=== PATIENT | female | born 1945 | race Caucasian/White ===

== ENCOUNTER 2019-08-16 12:02 | Inpatient (IN) | payer OTHER ==
[~2019-08-16] VITALS: Ht 167.6 cm; Wt 121.1 kg
--- NOTE | ~2019-08-16 | HC ---
[facility] [place] [address] CONSULTATION Name: SARAH VALLE Tyrone Room #: 211-P [facility] IN M.R.#: [id number] Admission: 08/16/19 Attend Phys: Dwayne Milton MD Discharge: Date of : 47 Report #: [id number] THIS REPORT FOR: cc: Chante Alavrado MD,Aureliano Galindo MD, MD FAC ~ CC: Dr. Sage Alvarado MD REASON FOR CONSULTATION: Chest pain. HISTORY OF PRESENT ILLNESS: The patient is a 74-year-old woman with longstanding hypertension and known coronary artery disease with intervention at [facility] in 2013. Her history includes diabetes, chronic diastolic heart failure, dyslipidemia and sleep apnea. For the past week, she has had intermittent chest pressure. This pain can occur both with activity or rest. The pain has been relieved with sublingual nitroglycerin. She called Dr. Grande's office yesterday and arrangements were made for coronary angiography this upcoming Sunday. She had recurrent episodes of pain and presented to the Emergency Department and was admitted for further evaluation. She denies heart failure symptoms including orthopnea, paroxysmal nocturnal dyspnea, or lower extremity edema. No history of palpitations, near syncope or syncope. ALLERGIES: Include CIPRO, CODEINE, KEFLEX, PENICILLIN and SEPTRA. MEDICATIONS: Include Arimidex 1 mg daily, Ventolin, Humulin, irbesartan 300 mg daily, tramadol 2 times a day, Symbicort, Plavix 75 mg daily, Colace, Lipitor 20 mg daily, spironolactone 50 mg twice daily, Coreg 6.25 mg twice daily, Lasix 40 mg twice daily and Tylenol. PAST MEDICAL HISTORY: Medical records have been reviewed and include a history of coronary artery disease, hypertension, chronic diastolic heart failure, known left bundle branch block, carpal tunnel release, right and left knee replacements, tonsillectomy. SOCIAL HISTORY: She is . Nonsmoker, nondrinker. FAMILY HISTORY: Notable for premature coronary artery disease. REVIEW OF SYSTEMS: All systems negative except as that noted above. PHYSICAL EXAMINATION: GENERAL: A pleasant woman who is in no distress. VITAL SIGNS: Blood pressure is 100/50, heart rate is 66 and regular. She is afebrile, 5 feet 6 inches tall, [address] [address] CONSULTATION Name: SARAH VALLE Room #: 211-P [facility] IN ..#: [id number] Admission: 08/16/19 Attend Phys: Dwayne Milton MD Discharge: Date of : 47 Report #: [id number] HEENT: There are neither xanthelasma, subcutaneous xanthomata, oral mucosal or digital cyanosis or kyphoscoliosis present. CHEST: Clear to auscultation and percussion. CARDIAC: Regular rate and rhythm with normal S1, S2. No murmurs or rubs. ABDOMEN: Soft and nontender. EXTREMITIES: Without cyanosis, clubbing or edema. Radial pulses are 2+. NEUROLOGIC: She is alert with a nonfocal exam. LABORATORY DATA: Sodium is 137, potassium 3.8, creatinine 1.1. Troponin 0.15. ProBNP of 243. White count 8.9, hemoglobin 13, hematocrit 41, platelet count 265. Chest x-ray: Cardiomegaly, mild interstitial prominence. IMPRESSION: 1. Chest pain consistent with unstable angina. 2. Coronary artery disease with remote stenting. 3. Diabetes, insulin requiring. 4. Dyslipidemia. 5. Hypertension. 6. Chronic diastolic heart failure, ejection fraction 55% by recent echocardiography with moderate aortic valve calcification without stenosis. 7. Left bundle branch block. 8. Sleep apnea, untreated, intolerant to CPAP. 9. Obesity. RECOMMENDATIONS: 1. Coronary angiography. 2. Continued use of beta blockade, statin and ARB therapy. 3. The angiographic procedure was discussed in detail including its associated risks. After a thorough discussion of the procedure, its risks and alternatives, she is agreeable to proceeding. By: 0823 0852 Aureliano Silva MD, [facility] /nt
[~2019-08-16 12:02] MED LIST: ADVAIR 100-501 EACH INH; ALDACTONE25 MG PO; ASPIRIN325 PO; CALCIUM 600+D1 EACH PO; CELEBREX 200 M200 M1 PO; CENTRUM SILVER1 EAC2 PO; COLACE100 MG PO; COREG6.25 MG PO; EFFIENT10 MG PO; FLONASE 0.05%50 MCG NASAL; HUMULINU500; LASIX 40 MG TAB40 M2 PO; LIPITOR 20 MG T20 M1 PO; METFORMIN HCL500 MG PO; NEURONTIN 300300 M1 PO; POTASSIUM20 PO; TELMISARTAN40 MG PO; TRAMADOL 50 MG50 MG PO; ZYRTEC10 M5 PO
[2019-08-16 12:03] VITALS: BP 140/62
[2019-08-16 12:27] LABS: ABSOLUTE NEUTROPHILS 6.2 thou/uL (1.4-8.2); BASOPHILS 0.6 % (0.0-2.0); EOSINOPHILS 4.6 % (0.0-3.0); HEMOGLOBIN 14.1 gm/dL (12.0-15.0); LYMPHOCYTES 28.3 % (24.0-44.0); MCH 30.1 pg (26.0-34.0); MCHC 33.6 g/dL (28.0-37.0); MCV 89.6 fL (80.0-100.0); MONOCYTES 10.6 % (1.0-8.0); PLATELET COUNT 267 thou/uL (150-400); POLYS 55.9 % (36.0-66.0); RBC 4.69 mil/uL (4.20-5.00); RDW 14.6 % (10.5-14.5); WBC 11.1 thou/uL (4.0-11.0)
[2019-08-16 12:31] LABS: CALCIUM 10.3 mg/dL (8.5-10.1); CREATININE 1.4 mg/dL (0.6-1.0); POTASSIUM 4.3 mmol/L (3.5-5.1)
[2019-08-16 12:40] LABS: TROPONIN-I 0.1 ng/mL (<0.06)
--- NOTE | 2019-08-16 14:54 | NUR ---
REPORT CALLED TO GRACIA HERNANDEZ
[2019-08-16 15:10] VITALS: BP 118/61
[2019-08-16 15:20] VITALS: BP 89/50
[2019-08-16 16:30] VITALS: BP 109/42
[2019-08-16] MEDS ORDERED: METFORMIN HCL500 M3 PO (16:53)
[2019-08-16] MEDS ORDERED: PLAVIX 75 MG TA75 MG PO (16:54)
[2019-08-16] MEDS ORDERED: ARIMIDEX1 MG PO ×2 (16:56→17:08)
[2019-08-16] MEDS ORDERED: VENTOLIN HFA 1818 GM INH (17:09)
[2019-08-16] MEDS ORDERED: HUMULIN R500 UNIT/1 SQ (17:10)
[2019-08-16 17:11] LABS: PROTIME 10.7 Seconds (9.3-11.4)
[2019-08-16] MEDS ORDERED: FLUOXETINE HCL20 M1 PO (17:11)
[2019-08-16] MEDS ORDERED: HYDROCODON-ACE1 EAC7 PO (17:12)
[2019-08-16] MEDS ORDERED: SYMBICORT80 MCG/4.1 INH (17:13)
[2019-08-16] MEDS ORDERED: SPIRONOLACTONE50 MG PO (17:14)
[2019-08-16] MEDS ORDERED: MECLIZINE HCL25 M1 PO (17:15)
[2019-08-16] MEDS ORDERED: VALIUM2 MG PO (17:16)
[2019-08-16] MEDS ORDERED: BACLOFEN 10MG T10 MG PO (17:16)
[2019-08-16] MEDS ORDERED: ACETAMINOPHEN500 MG PO (17:18)
[2019-08-16] MEDS ORDERED: MUCINEX1200 MG PO (17:22)
--- NOTE | 2019-08-16 18:06 | NUR ---
PT CARE ASSUMED APPROX 1520. ASSESSMENT CHARTED. PT DENIES PAIN AND SOA. BP BELOW NORMAL LIMITS. DR AREVALO AWARE AND MED ADJUSTMENTS MADE. PT ASYMPTOMATIC BUT AWARE TO CALL FOR ASSISTANCE WITH AMBULATING. VITAL SIGNS OTHERWISE STABLE. HEP GTT ADDED TO POC. PT DENIES QUESTIONS AND CONCERNS REGARDING POC. TOLERATING POC. NO DISTRESS NOTED.
[2019-08-16 19:25] VITALS: BP 125/42
--- NOTE | 2019-08-17 04:27 | NUR ---
ASSUMED PT CARE AT 1900. PT IS ALERT AND ORIENTED. PT IS SITTING IN CHAIR. CONTINUOUS HEPARIN DRIP IN PLACE. NO IS SIGN OF DISTRESS NOTED. ASSESSMENT COMPLETED AND DOCUMENTED. DENIES ANY PAIN, VITAL SIGNS STABLE. SCHEDULED MEDS ADMINISTERED TO PT. TOLERATED PO INTAKE. NO ACUTE EVENTED OVERNIGHT. DENIES ANY FURTHER NEEDS AT THIS TIME.
[2019-08-17 05:06] VITALS: BP 110/51
[2019-08-17 07:12] LABS: HEMATOCRIT 41.8 % (37.0-47.0); HEMOGLOBIN 13.9 gm/dL (12.0-15.0); MCHC 33.3 g/dL (28.0-37.0); MCV 89.9 fL (80.0-100.0); RBC 4.65 mil/uL (4.20-5.00); RDW 14.8 % (10.5-14.5); WBC 8.9 thou/uL (4.0-11.0)
[2019-08-17 07:32] LABS: CALCIUM 9.9 mg/dL (8.5-10.1); CREATININE 1.1 mg/dL (0.6-1.0); MAGNESIUM 1.6 mg/dL (1.8-2.4); POTASSIUM 3.8 mmol/L (3.5-5.1)
[2019-08-17 08:55] LABS: CHOLESTEROL 87 mg/dL (<200); HDL CHOLESTEROL 34 mg/dL (>40); LDL CHOLESTEROL 32 mg/dL (<100); TC:HDL 2.6 Ratio (Not establshd); TRIGLYCERIDE 107 mg/dL (<150); VLDL 21 mg/dL (<40)
[2019-08-17 09:10] VITALS: BP 111/70
--- NOTE | 2019-08-17 11:08 | EKG ---
[facility] [address] ELECTROCARDIOGRAM REPORT Name: TORIDENNYSSARAH A Room #: 211- ADM IN M.R.#: [id number] Admission: 08/16/19 Attend Phys: Dwayne Milton MD Discharge: Date of : 47 Report #: [id number] THIS REPORT FOR: cc: Chante Alvarado MD,Chante Silva,Aureliano Hodges MD [facility] ~ THIS REPORT FOR: //name// [facility] ED Test Date: 2019-08-16 Test Time: 12:05:39 Pat Name: SARAH VALLE Department: Room: 211 Gender: F Core Baker: MARIBEL : 1945 Requested By: Ken Mijares Order Number: [id number] MD: Aureliano Silva Measurements Intervals [place] Rate: 79 P: 55 MI: 170 QRS: -6 QRSD: 164 T: 170 QT: 404 QTc: 464 Interpretive Statements Sinus rhythm Left bundle branch block Compared to ECG 08/25/2003 14:20:49 No significant changes Electronically Signed On 08-17-2019 11:06:42 CDT by Aureliano Silva [email or web address] <ELECTRONICALLY SIGNED> By: Aureliano Silva MD, [facility] 08/17/19 1106 1205 1205 Aureliano Silva MD, [facility] /EPI
--- NOTE | 2019-08-17 11:20 | EKG ---
[facility] [place] [address] ELECTROCARDIOGRAM REPORT Name: SARAH VALLE Room #: 211-P ADM IN M.R.#: [id number] Admission: 08/16/19 Attend Phys: Dwayne Milton MD Discharge: Date of : 47 Report #: [id number] THIS REPORT FOR: cc: Chante Alvarado MD,Chante Silva,Aureliano Hodges MD [facility] ~ THIS REPORT FOR: //name// [facility] Test Date: 2019-08-17 Test Time: 08:34:50 Pat Name: SARAH VALLE Department: Room: 211 P Gender: F Music Engraver: Ji RHODES : 1945 Requested By: Aureliano Silva Order Number: [id number] MD: Aureliano Silva Measurements Intervals [place] Rate: 85 P: 56 [place]: 157 QRS: 11 QRSD: 162 T: 179 QT: 393 QTc: 468 Interpretive Statements Sinus rhythm Left bundle branch block Baseline wander in lead(s) V1 Compared to ECG 08/25/2003 14:20:49 No significant changes Electronically Signed On 08-17-2019 11:19:01 CDT by Aureliano Silva [email or web address] <ELECTRONICALLY SIGNED> By: Aureliano Silva MD, [facility] 08/17/19 1119 0834 0834 Aureliano Silva MD, FAC /EPI
[2019-08-17 12:56] VITALS: BP 110/43
[2019-08-17 17:50] VITALS: BP 121/45
--- NOTE | 2019-08-17 18:45 | NUR ---
ASSUMED CARE OF PATIENT AT 0700. ASSESSMENTS CHARTED. HEPARIN DRIP AND RECORDED ON TITRATION FORM. DENIES ANY CHEST PAIN. HR 70'S. PATIENT MONITORS BLOOD SUGAR WITH MANINDER IN LEFT ARM AND INSULIN PUMP. LOW MAGNESIUM, SUPPLEMENTED AND RECHECKED WITHOUT NORMAL LIMITS. ANGIOGRAM AND CARDIAC CATH SCHEDULED FOR MON AM. CONSENTS SIGNED. PATIENT SAT IN CHAIR FOR MAJORITY OF THE DAY. CONTINUE WITH POC.
[2019-08-17 19:43] VITALS: BP 108/61
[2019-08-18] VITALS (12 sets, daily range): BP systolic 96–142; BP diastolic 44–79
--- NOTE | 2019-08-18 03:24 | NUR ---
ASSESSMENTS CHARTED, MEDS CHARTED GIVEN. PATIENT RESTING IN RECLINER DURING SHIFT. ON HEPARIN DRIP UNTIL 0500 AM WHEN IT IS TO BE STOPPED. SINUS RHYTHM WITH BBB ON TELEMETRY. LUNGS CLEAR ON ROOM AIR. NPO SINCE MIDNIGHT FOR ANGIOGRAM AND LEFT HEART CATH IN THE AM. PATIENT UP WITH STANDBY ASSIST AND HER CANE. PATIENT HAS A GLUCOSE METER AND INSULIN PUMP SO IS TESTING AND SELF MEDICATED. FALL PRECAUTIONS IN PLACE DURING SHIFT. DENIED PAIN.
[2019-08-18 05:52] LABS: HEMATOCRIT 40.4 % (37.0-47.0); HEMOGLOBIN 13.6 gm/dL (12.0-15.0); MCH 29.9 pg (26.0-34.0); MCHC 33.5 g/dL (28.0-37.0); MCV 89.3 fL (80.0-100.0); RBC 4.53 mil/uL (4.20-5.00); RDW 14.6 % (10.5-14.5); WBC 8.9 thou/uL (4.0-11.0)
[2019-08-18 06:09] LABS: CALCIUM 8.9 mg/dL (8.5-10.1); MAGNESIUM 1.9 mg/dL (1.8-2.4); POTASSIUM 3.9 mmol/L (3.5-5.1)
--- NOTE | 2019-08-18 15:23 | EKG ---
[facility] [place] [address] ELECTROCARDIOGRAM REPORT Name: SARAH VALLE Room #: 211- ADM IN M.R.#: [id number] Admission: 08/16/19 Attend Phys: Dwayne Milton MD Discharge: Date of : 47 Report #: [id number] THIS REPORT FOR: cc: Chante Alvarado MD,Chante Honeycutt,Steve Goodman MD ~ THIS REPORT FOR: //name// [facility] Test Date: 2019-08-18 Test Time: 14:58:16 Pat Name: SARAH VALLE Department: Room: 211 P Gender: F Film Loader: Ji RHODES : 1945 Requested By: Aureliano Silva Order Number: [id number] MD: Steve Honeycutt Measurements Intervals [place] Rate: 71 P: 54 [place]: 172 QRS: 5 QRSD: 164 T: 200 QT: 426 QTc: 463 Interpretive Statements Sinus rhythm Left bundle branch block Compared to ECG 08/17/2019 08:34:50 No significant changes Electronically Signed On 08-18-2019 15:21:52 CDT by Steve Honeycutt [email or web address] <ELECTRONICALLY SIGNED> By: Steve Honeycutt MD 08/18/19 1521 1458 1458 Steve Honeycutt MD /EPI
--- NOTE | 2019-08-18 16:39 | NUR ---
PT CARE ASSUMED APPROX 0700. ASSESSMENTS CHARTED. PT DENIES PAIN AND SOA. VSS. ORDERED BEDREST AT THIS TIME POST CATH. RIGHT GROIN POST CATH SITE C/D/I AND NEGATIVE FOR HEMATOMA. POST CATH VSS. PT TOLERATING POC AND DENIES QUESITONS OR CONCERNS REGARDING POC. NO DISTRESS NOTED.
--- NOTE | 2019-08-18 16:54 | CATHLAB ---
[facility] [place] [address] INVASIVE PROCEDURE REPORT Name: SARAH VALLE Room #: 211-P ADM IN M.R.#: [id number] Admission: 08/16/19 Attend Phys: Dwayne Milton MD Discharge: Date of : 46 Report #: [id number] THIS REPORT FOR: cc: Chante Alvarado MD, Paula V. MD Lundgren, Craig H. MD [facility] ~ APPROVED REPORT Study performed: 08/18/2019 11:49:21 Patient Details Patient Status: In-Patient Room #: The patient is a 74 year-old female Event Personnel Aureliano Silva Wreath And Garland Maker, Yash Platt RTR Desire Kay Ja'net RTR Monitor, Senait Kyle RN RN, Tian Miles ARRT, RDCS Truck Greaser Procedures Performed Art Access - R femoral artery* Left Heart Cath w/or w/o Coronaries [id number] [facility] w/wo Plasty Single CIRC [address] w/wo Plasty Single LAD 799381 14042 Initial Mod Sed Same Phys/QHP Gr5y 393446 99144 Mod Sed Same Phys/QHP Ea 035878 Indication Chest pain Procedure Narrative The patient was brought electively to the Cardiac Catheterization Laboratory and was prepped and draped in a sterile manner. The Right Groin^ was infiltrated with 1% Lidocaine subcutaneous anesthesia. A PINNACLE 6FR Sheath #[id number] sheath was inserted into the RFA^. Coronary angiography was performed using coronary diagnostic catheters. The right coronary system was accessed and visualized with a JR4 catheter. The left coronary system was accessed and visualized with a JL4 catheter. The left ventricle was accessed and visualized with a PIGTAIL catheter. Closure device was deployed with a Fr 6FR MYNXGRIP. The patient tolerated the procedure well and there were no complications associated with the procedure. There was no hematoma. Intraoperative Conscious Sedation Sedation start time: 11:48 Case end Time: [address] [address] INVASIVE PROCEDURE REPORT Name: SARAH VALLE Room #: 211-P [facility]#: [id number] Admission: 08/16/19 Attend Phys: Dwayne Milton, Discharge: Date of : 47 Report #: [id number] 13:25 Fentanyl 200 mcg Versed 2 mg Fluoro Time: 19.80 minutes Dose: DAP 35946.00 cGycm2 4658 mGy Contrast Type and Amount: Visipaque 325 ml Coronary Angiography The patient's coronary anatomy is right dominant. Diagnostic Cath Left Main Short, dual left main with separate ostia for the circumflex and left anterior descending LAD Severe ostial LAD stenosis of 85%. Mild calcific plaquing within a previously placed proximal to mid LAD stent Mild-moderate mid vessel plaquing of 30-40% Diagonal 1 Relatively small to moderate-sized bifurcating diagonal branch. Superior and more lateral limb of this bifurcation exhibited a 75% stenosis Circumflex Critical mid circumflex stenosis of 99%. This stenosis occurred prior to 3 mid to distally arising marginal branches OM1 85 to 90% ostial OM1. Moderate diffuse, long 50-60% proximal stenosis. The caliber of this vessel was too small to have been intervened upon and stented. OM2 Angiographically normal OM3 Small angiographically normal Right Coronary Small to moderate size dominant right coronary with 40-50% mid vessel plaquing R PDA Small posterior descending, angiographically normal Left Ventriculography The left ventricle is normal in size with normal contractility. The left ventricular ejection fraction is estimated to be 60-65%. Left ventricular wall motion abnormalities are not present. There is no mitral insufficiency. Hemodynamics The aortic pressure is 138/69 mmHg with a mean of 95 mmHg. The left ventricular pressure is 142/20 mmHg with a mean of mmHg. The left ventricular end diastolic pressure is 27 mmHg. PCI Technique Lesion Anticoagulation was achieved with Heparin, Integrilin. Patient was preloaded with Plavix. Percutaneous coronary intervention was performed on the proximal left anterior descending artery segment. [facility] [address] [place] [address] INVASIVE PROCEDURE REPORT Name: SARAH VALLE Room #: 211-P [facility] IN ..#: [id number] Admission: 08/16/19 Attend Phys: Dwayne Milton, Discharge: Date of : 47 Report #: [id number] The lesion stenosis prior to intervention was 85% with NEGRA 3 flow. A LAUNCHER 6FR JL4 #[id number] Guide Catheter was used to engage the left main/LAD ostium. A Luge Wire .014 x 182CM #[id number] Interventional Guidewire was used to cross the lesion. BALLOON DILATION A Balloon catheter Euphora RX 2.5 x 12 #[id number] was inserted and inflated up to 14.00atm for 32seconds. Repeat angiography revealed the following post-dilatation results: Moderate residual stenosis. STENT DEPLOYMENT A drug-eluting stent RESOLUTE FIDEL RX 2.75 X 26 #[id number] was inserted and inflated up to 14.00atm for 30seconds. POST STENT DEPLOYMENT BALLOON DILATION A Balloon catheter TREK NC RX 2.75 X 12 #[id number] was inserted and inflated up to 18.00atm for 26seconds. Repeat angiography revealed the following post-stent deployment results: 0% residual stenosis with maintenance of NEGRA-3 flow. Additional Inflation: 22.00atm for 33seconds. Final angiography reveals 0 % stenosis with NEGRA 3 flow. PCI Technique Lesion 2 Percutaneous Coronary Intervention was performed on the mid circumflex artery segment. Percutaneous coronary intervention was performed on the mid circumflex artery segment. The lesion stenosis prior to intervention was 99% with NEGRA 3 flow. A VISTA 6FR XB LAD 3.5 #[id number] Guide Catheter was used to engage the left main/circumflex ostium. A Luge Wire .014 x 182CM #[id number] Interventional Guidewire was used to cross the lesion. Balloon Dilation A Balloon catheter Euphora RX 2.5 x 12 #[id number] was inserted and inflated up to 12atm for 36seconds. Additional Inflation: 12atm for 45seconds. A JL4 guide was initially used to stent the LAD. This offered no support in delivering either a balloon or stent to the mid circumflex. This was changed out for a XB guide and new luge wire. Stent Deployment A stent RESOLUTE FIDEL RX 2.75 X15 #[id number] was inserted and inflated up to 14atm for 32seconds. Post Stent Deployment Balloon Dilation [address] [place] [address] INVASIVE PROCEDURE REPORT Name: SARAH VALLE Room #: 211-P ADM IN M.R.#: [id number] Admission: 08/16/19 Attend Phys: Dwayne Milton, Discharge: Date of : 47 Report #: [id number] A Balloon catheter TREK NC RX 2.75 X 12 #[id number] was inserted and inflated up to 18atm for 30seconds. Conclusion 1. Normal global and regional left ventricular systolic function. Ejection fraction 65% 2. Cloacal left main with separate ostia for the LAD and circumflex. 3. Severe ostial LAD stenosis successfully stented with a 2.75 x 26 mm Resolute stent 4. Critical mid circumflex stenosis successfully stented with a 2.75 x 15 mm Resolute stent 5. Complex intervention with multiple wire and catheter exchanges 6. Moderate size dominant right coronary with moderate mid vessel plaquing Recommendations Cardiac Rehabilitation Referral [facility] <ELECTRONICALLY SIGNED> By: Aureliano Silva MD, FACC 08/18/191651 51 51 Aureliano Silva MD, FACC /INF
[2019-08-19 05:03] VITALS: BP 127/52
--- NOTE | 2019-08-19 05:03 | NUR ---
ASSESSMENTS CHARTED, MEDS GIVEN CHARTED. PATIENT RESTING IN CHAIR DURING SHIFT. 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 WAS OFF BEDREST PRIOR TO HUC. RIGHT GROIN ACCESS SITE HAS SLIGHT OOZING PERIMETERS MARKED. PATIENT IS SINUS RHYTHM WITH 1 DEGREE AND BBB ON TELEMETRY, ON ROOM AIR. FALL PRECAUTIONS IN PLACE DURING SHIFT, PLAN OF CARE IS FOR PATIENT TO ATTEND CARDIAC REHAB. DENIED PAIN
[2019-08-19 05:32] LABS: HEMATOCRIT 38.4 % (37.0-47.0); HEMOGLOBIN 13.1 gm/dL (12.0-15.0); MCH 30.9 pg (26.0-34.0); MCHC 34.1 g/dL (28.0-37.0); MCV 90.7 fL (80.0-100.0); RBC 4.23 mil/uL (4.20-5.00); RDW 14.3 % (10.5-14.5); WBC 10.6 thou/uL (4.0-11.0)
[2019-08-19 05:40] LABS: ALBUMIN 3.5 g/dL (3.4-5.0); CALCIUM 8.9 mg/dL (8.5-10.1); CREATININE 0.9 mg/dL (0.6-1.0); POTASSIUM 4.3 mmol/L (3.5-5.1); TOTAL BILIRUBIN 0.4 mg/dL (<0.1-1.0); TOTAL PROTEIN 6.5 g/dL (6.4-8.2); TROPONIN-I 0.3 ng/mL (<0.06)
[2019-08-19 07:20] VITALS: BP 124/46
--- NOTE | 2019-08-19 08:40 | EKG ---
[facility] [place] [address] ELECTROCARDIOGRAM REPORT Name: SARAH VALLE Room #: 211- ADM IN M.R.#: [id number] Admission: 08/16/19 Attend Phys: Dwayne Milton MD Discharge: Date of : 46 Report #: [id number] THIS REPORT FOR: cc: Chante Alvarado MD,Chante Silva,Aureliano Hodges MD [facility] ~ THIS REPORT FOR: //name// [facility] Test Date: 2019-08-19 Test Time: 07:32:26 Pat Name: SARAH VALLE Department: Room: 211 P Gender: F Fly Frame Tender: ADIEL : 1945 Requested By: Aureliano Silva Order Number: [id number] MD: Aureliano Silva Measurements Intervals [place] Rate: 79 P: -8 ME: 132 QRS: -9 QRSD: 159 T: 182 QT: 399 QTc: 458 Interpretive Statements Sinus rhythm Left bundle branch block Compared to ECG 08/18/2019 14:58:16 No significant changes Electronically Signed On 08-19-2019 8:38:45 CDT by Aureliano Silva [email or web address] <ELECTRONICALLY SIGNED> By: Aureliano Silva MD, [facility] 08/19/19 0838 0732 0732 Aureliano Silva MD, [facility] /EPI
[2019-08-19] MEDS ORDERED: ASPIRIN325 PO (10:31)
[2019-08-19 11:15] VITALS: BP 130/47
[2019-08-19 11:48] VITALS: BP 124/56
[2019-08-19] MEDS ORDERED: IRBESARTAN300 MG PO (11:52)
--- NOTE | 2019-08-19 14:28 | NUR ---
VSS-AFEBRILE. LUNGS CLEAR-ROOM AIR. SR-FIRST DEGREE AV BLOCK, BBB. RIGHT GROIN SITE DRESSING DRY AND INTACT. DISCUSSED DC INSTRUCTIONS, VERBALIZED UNDERSTANDING. LEFT UNIT IN WHEELCHAIR WITH ALL PERSONAL BELONGINGS. SPOUSE BRINGING PATIENT HOME IN PRIVATE VEHICLE.
[2019-08-19 14:31] VITALS: BP 124/56
== END 2019-08-19 14:20 | disposition home or self-care (01) | DRG 246 ==
LOC: ER 12:02 → EROBS 13:57 → 2N 13:57
PROVIDERS: Emergency Medicine; Internal Medicine; ADMIT Internal Medicine
PROC: 027135Z Dilation of Coronary Artery, Two Arteries with Two Drug-eluting Intraluminal Devices, Percutaneous Approach (ICD-10-PCS; principal; 2019-08-18)
PROC: 4A023N7 Measurement of Cardiac Sampling and Pressure, Left Heart, Percutaneous Approach (ICD-10-PCS; principal; 2019-08-18)
PROC: B211YZZ Fluoroscopy of Multiple Coronary Arteries using Other Contrast (ICD-10-PCS; principal; 2019-08-18)
PROC: B215YZZ Fluoroscopy of Left Heart using Other Contrast (ICD-10-PCS; principal; 2019-08-18)
DX: I21.4 Non-ST elevation (NSTEMI) myocardial infarction (principal); N17.0 Acute kidney failure with tubular necrosis; I50.32 Chronic diastolic (congestive) heart failure; Z68.41 Body mass index [BMI] 40.0-44.9, adult; I25.110 Atherosclerotic heart disease of native coronary artery with unstable angina pectoris; E11.9 Type 2 diabetes mellitus without complications; I44.7 Left bundle-branch block, unspecified; E66.9 Obesity, unspecified; G47.33 Obstructive sleep apnea (adult) (pediatric); I11.0 Hypertensive heart disease with heart failure; Z88.8 Allergy status to other drugs, medicaments and biological substances; I70.0 Atherosclerosis of aorta; Z96.653 Presence of artificial knee joint, bilateral; Z95.5 Presence of coronary angioplasty implant and graft; Z85.3 Personal history of malignant neoplasm of breast; Z88.6 Allergy status to analgesic agent; Z88.1 Allergy status to other antibiotic agents; Z88.2 Allergy status to sulfonamides; Z87.891 Personal history of nicotine dependence; Z82.49 Family history of ischemic heart disease and other diseases of the circulatory system; Z79.82 Long term (current) use of aspirin; Z79.899 Other long term (current) drug therapy
CPT/HCPCS: 10081

== ENCOUNTER 2020-07-24 19:49 | Emergency (ER) | payer OTHER ==
[~2020-07-24] VITALS: Ht 167.6 cm; Wt 118.8 kg
[~2020-07-24 19:49] MED LIST changes: +ACETAMINOPHEN500 MG PO; +ARIMIDEX1 MG PO; +BACLOFEN 10MG T10 MG PO; +FLUOXETINE HCL20 M1 PO; +HUMULIN R500 UNIT/1 SQ; +HYDROCODON-ACE1 EAC7 PO; +IRBESARTAN300 MG PO; +MECLIZINE HCL25 M1 PO; +METFORMIN HCL500 M3 PO; +MUCINEX1200 MG PO; +PLAVIX 75 MG TA75 MG PO; +SPIRONOLACTONE50 MG PO; +SYMBICORT80 MCG/4.1 INH; +VALIUM2 MG PO; +VENTOLIN HFA 1818 GM INH
[2020-07-24 20:10] LABS: ABSOLUTE NEUTROPHILS 5.5 thou/uL (1.4-8.2); BASOPHILS 0.8 % (0.0-2.0); EOSINOPHILS 6.2 % (0.0-3.0); HEMATOCRIT 40.4 % (37.0-47.0); HEMOGLOBIN 13.9 gm/dL (12.0-15.0); LYMPHOCYTES 30.3 % (24.0-44.0); MCHC 34.4 g/dL (28.0-37.0); MONOCYTES 13.5 % (1.0-8.0); PLATELET COUNT 317 thou/uL (150-400); POLYS 49.2 % (36.0-66.0); RDW 14.2 % (10.5-14.5); WBC 11.1 thou/uL (4.0-11.0)
[2020-07-24 20:20] LABS: ANION GAP 8 mmol/L (7-16); BUN 28 mg/dL (7-18); CALCIUM 9.9 mg/dL (8.5-10.1); CHLORIDE 92 mmol/L (98-107); CO2 31 mmol/L (21-32); CREATININE 1.5 mg/dL (0.6-1.0); GLUCOSE 152 mg/dL (74-106); POTASSIUM 4.2 mmol/L (3.5-5.1); SODIUM 131 mmol/L (136-145)
[2020-07-24 20:28] LABS: TROPONIN-I <0.06 ng/mL (<0.06)
[2020-07-24 20:46] LABS: URINE BILIRUBIN NEGATIVE (Negative); URINE BLOOD NEGATIVE (Negative); URINE CLARITY CLEAR; URINE COLOR YELLOW; URINE GLUCOSE-RANDOM* NEGATIVE (Negative); URINE KETONES NEGATIVE (Negative); URINE LEUKOCYTES-REFLEX TRACE (Negative); URINE NITRITE-REFLEX NEGATIVE (Negative); URINE PROTEIN (DIPSTICK) NEGATIVE (Negative); URINE UROBILINOGEN 0.2 E.U./dl (0.2-1.0)
[2020-07-24] MEDS ORDERED: FLEXERIL PO (21:07)
[2020-07-24] MEDS ORDERED: ASA81BEC PO (21:08)
[2020-07-24] MEDS ORDERED: SPIRONOLACTONE50 MG PO (21:18)
[2020-07-24] MEDS ORDERED: NEURONTIN 300M300 M2 PO (21:19)
[2020-07-24 21:23] VITALS: BP 131/62
--- NOTE | 2020-07-25 11:30 | EKG ---
[place] [address] [facility] [place] [address] ELECTROCARDIOGRAM REPORT Name: SARAH VALLE [facility] [id number] Admission: 07/24/20 Attend Phys: Discharge: 07/24/20 Date of : 47 Report #: [id number] [facility] ED Test Date: 2020-07-24 Test Time: 19:54:09 Pat Name: SARAH VALLE Department: Room: Gender: F Manager Coding: JSHORT1 : 1945 Requested By: Amrit Walls Order Number: [id number] MD: Prem Stout Measurements Intervals [place] Rate: 84 P: 5 [place]: 179 QRS: 6 QRSD: 162 T: 158 QT: 383 QTc: 453 Interpretive Statements Sinus rhythm Left bundle branch block Compared to ECG 08/19/2019 07:32:26 No significant changes Electronically Signed On 07-25-2020 11:30:32 CDT by Prem Stout [email or web address] <ELECTRONICALLY SIGNED> By: Prem Stout MD, [facility] 07/25/20 1130 53 53 Prem Stout MD, FACC /EPI
== END 2020-07-24 21:30 | disposition home or self-care (01) ==
LOC: ER 19:49
PROVIDERS: Nurse Practitioner
DX: R53.1 Weakness (principal); Z79.01 Long term (current) use of anticoagulants; Z79.899 Other long term (current) drug therapy; Z88.0 Allergy status to penicillin; Z88.1 Allergy status to other antibiotic agents; Z88.2 Allergy status to sulfonamides; Z88.5 Allergy status to narcotic agent; Z88.8 Allergy status to other drugs, medicaments and biological substances